=== PATIENT | female | born 1975 | race Caucasian/White ===

== ENCOUNTER → 2023-10-06 16:08 | Outpatient (REF) | payer BC, SELFPAY | LOC: HWWDC 16:08 | PROVIDERS: ATTENDING PHYSICIAN Internal Medicine | DX: Z12.31 Encounter for screening mammogram for malignant neoplasm of breast (principal) | CPT/HCPCS: 77063; 77067 ==

== ENCOUNTER → 2023-10-13 10:39 | Outpatient (REF) | payer BC, SELFPAY | LOC: WDC 10:39 | PROVIDERS: ATTENDING PHYSICIAN Internal Medicine | DX: R92.8 Other abnormal and inconclusive findings on diagnostic imaging of breast (principal) | CPT/HCPCS: 76642 ==

== ENCOUNTER → 2023-12-13 14:40 | Outpatient (REF) | payer BC, SELFPAY ==
[2023-12-13 13:57] LABS: % Basophils 0.4 % (0-2); % Eosinophils 1.6 % (0-6); % Immature Granulocytes 0.4 % (0-0.5); % Lymphocytes 21.7 % (20.5-51.1); % Monocytes 5.7 % (1.7-9.3); % Neutrophils 70.2 % (42.2-75.2); Absolute Eosinophils 0.1 10^3/uL (0-0.7); Absolute Lymphocytes 1.7 10^3/uL (1.2-3.4); Absolute Monocytes 0.4 10^3/uL (0.1-0.6); Absolute Neutrophils 5.4 10^3/uL (1.4-6.5); Hematocrit 24.8 % (37.0-47.0); Hemoglobin 6.9 g/dL (12.0-16.0); Mean Corp Hgb Conc. 27.8 g/dL (33.0-37.0); Mean Corpuscular Hgb 17.5 pg (27.0-31.0); Mean Corpuscular Volume 62.8 fL (81.0-99.0); Mean Platelet Volume 9.4 fL (7.4-10.4); Nucleated Red Blood Cells % 0 %; Platelet Count 354 10^3/uL (130-400); Red Blood Cell Count 3.95 10^6/uL (4.20-5.40); Red Cell Dist. Width 17.7 % (11.5-14.5); White Blood Cell Count 7.7 10^3/uL (4.8-10.8)
[2023-12-13 14:55] LABS: Hypochromasia 2+; Microcytosis 1+; Normal RBC Morphology No; Ovalocytes 1+
[2023-12-13 14:56] LABS: Tear Drop Red Blood Cells 1+
== END ==
LOC: OIDL 14:40
PROVIDERS: ATTENDING PHYSICIAN Nurse Practitioner Adult Health
DX: D50.0 Iron deficiency anemia secondary to blood loss (chronic) (principal)
CPT/HCPCS: 85025

== ENCOUNTER → 2024-02-02 15:52 | Outpatient (REF) | payer BC, SELFPAY ==
[2024-02-02 16:03] LABS: % Basophils 0.5 % (0-2); % Eosinophils 2.1 % (0-6); % Immature Granulocytes 0.3 % (0-0.5); % Lymphocytes 23.8 % (20.5-51.1); % Monocytes 7.5 % (1.7-9.3); % Neutrophils 65.8 % (42.2-75.2); Absolute Eosinophils 0.2 10^3/uL (0-0.7); Absolute Lymphocytes 1.9 10^3/uL (1.2-3.4); Absolute Monocytes 0.6 10^3/uL (0.1-0.6); Absolute Neutrophils 5.1 10^3/uL (1.4-6.5); Hematocrit 29.4 % (37.0-47.0); Hemoglobin 9.2 g/dL (12.0-16.0); Mean Corp Hgb Conc. 31.3 g/dL (33.0-37.0); Mean Corpuscular Hgb 24.2 pg (27.0-31.0); Mean Corpuscular Volume 77.4 fL (81.0-99.0); Mean Platelet Volume 9.4 fL (7.4-10.4); Nucleated Red Blood Cells % 0 %; Platelet Count 324 10^3/uL (130-400); Red Cell Dist. Width 25.7 % (11.5-14.5); White Blood Cell Count 7.8 10^3/uL (4.8-10.8)
[2024-02-02 16:46] LABS: Normal RBC Morphology No
[2024-02-02 16:47] LABS: Anisocytosis 1+; Macrocytosis 1+
[2024-02-02 16:48] LABS: Microcytosis 1+; Ovalocytes 1+
[2024-02-02 16:50] LABS: Target Cells Slight
== END ==
LOC: OIDL 15:52
PROVIDERS: ATTENDING PHYSICIAN Nurse Practitioner Family
DX: D50.0 Iron deficiency anemia secondary to blood loss (chronic) (principal)
CPT/HCPCS: 85025

== ENCOUNTER → 2024-03-14 09:28 | Outpatient (REF) | payer BC, SELFPAY | LOC: HWRAD 09:28 | PROVIDERS: ATTENDING PHYSICIAN Nurse Practitioner Family; FAMILY PHYSICIAN Internal Medicine | DX: R22.2 Localized swelling, mass and lump, trunk (principal); N93.9 Abnormal uterine and vaginal bleeding, unspecified | CPT/HCPCS: 76536; 76830; 76856 ==

== ENCOUNTER 2024-07-04 06:12 | Day surgery (SDC) | payer BC, SELFPAY ==
[2024-06-14 08:32] VITALS: BMI 27.4
[2024-06-14 09:20] LABS: % Basophils 0.7 % (0-2); % Eosinophils 1.5 % (0-6); % Immature Granulocytes 0.3 % (0-0.5); % Lymphocytes 29.1 % (20.5-51.1); % Monocytes 7.5 % (1.7-9.3); % Neutrophils 60.9 % (42.2-75.2); Absolute Eosinophils 0.1 10^3/uL (0-0.7); Absolute Lymphocytes 1.8 10^3/uL (1.2-3.4); Absolute Monocytes 0.5 10^3/uL (0.1-0.6); Absolute Neutrophils 3.7 10^3/uL (1.4-6.5); Hemoglobin 12.6 g/dL (12.0-16.0); Mean Corp Hgb Conc. 33.2 g/dL (33.0-37.0); Mean Corpuscular Hgb 28.4 pg (27.0-31.0); Mean Corpuscular Volume 85.8 fL (81.0-99.0); Mean Platelet Volume 9.5 fL (7.4-10.4); Nucleated Red Blood Cells % 0 %; Platelet Count 290 10^3/uL (130-400); Red Blood Cell Count 4.43 10^6/uL (4.20-5.40); Red Cell Dist. Width 12.3 % (11.5-14.5); White Blood Cell Count 6.1 10^3/uL (4.8-10.8)
[2024-06-14 11:10] LABS: Blood Urea Nitrogen 12 mg/dl (7-17); Calcium 9.5 mg/dl (8.4-10.2); Carbon Dioxide 24 mmol/L (22-30); Chloride 101 mmol/L (98-107); Estimated Creatinine Clearance 100 ml/min; Glucose 89 mg/dl (70-99); Potassium 4.2 mmol/L (3.5-5.1); Sodium 137 mmol/L (135-145); eGFR > 60.00
[2024-06-14 11:16] LABS: Beta HCG Quantitative < 2.39 mIU/ml
[2024-07-04] VITALS (10 sets, daily range): BP systolic 108–137; BP diastolic 57–88; BMI 27.4
--- NOTE | 2024-07-04 09:58 | W.IMMPOSTOP ---
Surgical Immed Post Op Note
-
Primary Surgeon: Farida Conroy DO
Assisting Surgeon: none
Pre-op Diagnosis: Menorrhagia, enlarged uterus, endometrial mass
Post-op Diagnosis: same; multiple submucosal fibroids; prolapsed cervical fibroid
Procedure Performed: Hysteroscopy D&C, cervical fibroid myomectomy, hysteroscopic resection of submucosal fibroids
Anesthesia Type: TIVA LMA Dr. Dumas
Specimen / Cultures: 1. endocervical curettings 2. cervical fibroid 3. endometrial curettings and resected fibroids ( in sock)
Estimated Blood Loss: 100ml
Complications: none
Operative Findings: Enlarged uterus sounded to 12 cm, bilateral tubal ostia seen. Multiple (3) submucosal fibroids filing endometrial cavity. B/L ostia seen.
Fluid deficit: 526ml NSS
Vaginal packing placed in vagina.
Complications: none
Counts correct times 2.
Stable to recovery.
--- NOTE | 2024-07-04 20:15 | W.PN.UPDATE ---
Update Note
Progress Note Update
Late Entry: I saw Juan in PACU prior to going back to [facility]. She was feeling well. Op findings were discussed with her. She was made aware of packing and I will arrange to meet her to remove it tomorrow.She was advised to call if heavy bleeding,
dizziness or lightheadedness. I spoke with her this evening and she reported feeling well. Only small amount of blood with using bathroom on toilet paper. Changed a pad maybe 3 times today but was not saturated. Aware to call if dizzy, lightheaded,
saturating pad hourly or passing clots through packing. Discussed that fibroids were not completely resected due to fluid deficit. Explained. May need future repeat procedure to resect remaining fibroids. Reviewed option of UAE or hysterectomy as
well. Aware if heavier bleeding, this may change what is recommended. Reviewed with pt in PACU and again tonight. Also d/w her after surgery.
== END 2024-07-04 11:07 | disposition home or self-care (01) ==
LOC: SDS 06:12
PROVIDERS: ATTENDING PHYSICIAN Obstetrics & Gynecology; FAMILY PHYSICIAN Internal Medicine; OTHER PHYSICIAN Internal Medicine Hematology & Oncology
DX: N84.1 Polyp of cervix uteri (principal); N84.0 Polyp of corpus uteri; N92.0 Excessive and frequent menstruation with regular cycle
CPT/HCPCS: 58561; 88305; 36415; 80048; 84702; 85025; 86850; 86900; 86901

== ENCOUNTER → 2025-08-06 14:39 | Outpatient (REF) | payer BC, SELFPAY | LOC: HWWDC 14:39 | PROVIDERS: ATTENDING PHYSICIAN Internal Medicine; REFERRING PHYSICIAN Obstetrics & Gynecology | DX: Z12.31 Encounter for screening mammogram for malignant neoplasm of breast (principal) | CPT/HCPCS: 77063; 77067 ==